=== PATIENT | female | born 1945 | race Hispanic/Latino ===

== ENCOUNTER → 2017-08-27 | Outpatient (CLI) | payer OTHER ==
[~2017-08-27] MED LIST: ASPI-1012 PO; ESCI5TAB10 PO; FOLI1TAB15 PO; HYDR-309 PO; LISI-617 PO; MULTIVITAMIN PO; OMEP40CA37 PO; RANI150T7 PO; [UNRECOGNIZED DRUG - OTHER] PO
== END | disposition home or self-care (01) ==
LOC: RAH 09:54
PROVIDERS: ATTEND Internal Medicine Gastroenterology
DX: K21.9 Gastro-esophageal reflux disease without esophagitis (principal); K44.9 Diaphragmatic hernia without obstruction or gangrene
CPT/HCPCS: 74240

== ENCOUNTER → 2020-03-17 | Outpatient (CLI) | payer OTHER ==
[~2020-03-17] MED LIST changes: -ESCI5TAB10 PO; +ESCI5TAB25 PO; -HYDR-309 PO; +HYDR-4457 PO; +OMEP40CA13 PO; -OMEP40CA37 PO
== END | disposition home or self-care (01) ==
LOC: OIH 13:04
PROVIDERS: ATTEND Internal Medicine
DX: M19.072 Primary osteoarthritis, left ankle and foot (principal); M19.071 Primary osteoarthritis, right ankle and foot; M77.31 Calcaneal spur, right foot; M85.80 Other specified disorders of bone density and structure, unspecified site
CPT/HCPCS: 73630

== ENCOUNTER → 2020-09-03 | Outpatient (CLI) | payer OTHER ==
[~2020-09-03] MED LIST changes: +ESCI5TAB16 PO; -ESCI5TAB25 PO; -LISI-617 PO; +LISI-809 PO; -OMEP40CA13 PO; +OMEP40CA21 PO
== END | disposition home or self-care (01) ==
LOC: SHCH 12:47
PROVIDERS: ATTEND Internal Medicine
DX: I87.2 Venous insufficiency (chronic) (peripheral) (principal); I73.9 Peripheral vascular disease, unspecified
CPT/HCPCS: 93922; 93970

== ENCOUNTER 2021-12-16 09:50 | Emergency (ER) | payer OTHER ==
[~2021-12-16] VITALS: Ht 149.9 cm; Wt 74.8 kg
[~2021-12-16 09:50] MED LIST changes: -LISI-809 PO; +LISI5TAB21 PO
[2021-12-16 10:09] LABS: BASOPHILS % (AUTO) 0.2 % (0.0-5.0); EOSINOPHILS % (AUTO) 8.3 % (0.0-8.0); HEMATOCRIT 30.6 % (36-48); LYMPHOCYTES % (AUTO) 23.4 % (21.0-51.0); MEAN CORPUSCULAR HEMOGLOBIN 26.6 pg (27.0-33.0); MEAN CORPUSCULAR HGB CONC 32.7 g/dL (32.0-36.0); MEAN CORPUSCULAR VOLUME 81.4 fL (79-99); MONOCYTES % (AUTO) 6.7 % (3.0-13.0); PLATELET COUNT (AUTO) 190 K/uL (130-400); RED BLOOD CELL COUNT(AUTO) 3.76 MIL/uL (4.00-5.50); RED CELL DISTRIBUTION WIDTH 17.5 % (11.0-15.5); WHITE BLOOD COUNT (AUTO) 5.6 K/uL (4.8-10.8)
[2021-12-16] MEDS ORDERED: ASPIRIN 325MG TAB PO ONE (10:30)
[2021-12-16 10:34] LABS: ALBUMIN 3.1 g/dL (3.5-5.0); TOTAL PROTEIN, SERUM 6.4 g/dL (6.0-8.3)
[2021-12-16] MEDS ORDERED: FAMO20TA8 PO (13:58)
[2021-12-16] MEDS ORDERED: LIDOCAINE HCL 2% VISCOUS 15 ML UDCUP PO ONE (14:00)
[2021-12-16] MEDS ORDERED: MAG/ALUM/SIMETH 30 ML UDCUP PO ONE (14:00)
[2021-12-16] MEDS ORDERED: DICYCLOMINE HCL 10 MG/5 ML ML PO ONE (14:00)
[2021-12-16 14:33] VITALS: BP 136/58
== END 2021-12-16 14:46 | disposition home or self-care (01) ==
LOC: EDH 09:50
DX: K44.9 Diaphragmatic hernia without obstruction or gangrene (principal); R00.1 Bradycardia, unspecified; R07.89 Other chest pain; E78.00 Pure hypercholesterolemia, unspecified; M19.90 Unspecified osteoarthritis, unspecified site; Z79.82 Long term (current) use of aspirin; Z90.49 Acquired absence of other specified parts of digestive tract
CPT/HCPCS: 36415; 71045; 80053; 82550; 83880; 84484; 85025; 93005

== ENCOUNTER → 2022-03-20 | Outpatient (CLI) | payer OTHER ==
[~2022-03-20] MED LIST changes: +FAMO20TA8 PO
== END | disposition home or self-care (01) ==
LOC: RAH 09:38
PROVIDERS: ATTEND Surgery
DX: K44.9 Diaphragmatic hernia without obstruction or gangrene (principal)
CPT/HCPCS: 74240

== ENCOUNTER → 2022-04-27 | Outpatient (CLI) | payer OTHER ==
[~2022-04-27] MED LIST changes: +LIDOCAINE HCL 1% 20 ML VIAL ONE
== END | disposition home or self-care (01) ==
LOC: RAH 08:34
PROVIDERS: ATTEND Internal Medicine
DX: Z12.31 Encounter for screening mammogram for malignant neoplasm of breast (principal)
CPT/HCPCS: 77067

== ENCOUNTER → 2022-04-28 | Outpatient (CLI) | payer OTHER ==
[~2022-04-28] MED LIST changes: -LIDOCAINE HCL 1% 20 ML VIAL ONE
[2022-04-28 08:33] LABS: INR 0.93 (0.85-1.15); PROTHROMBIN TIME 10.1 SEC (9.6-11.6)
[2022-04-28 08:34] LABS: PARTIAL THROMBOPLASTIN TIME 25.4 SEC (26.3-35.5)
== END | disposition home or self-care (01) ==
LOC: RAH 08:00
PROVIDERS: ATTEND Internal Medicine
DX: E04.2 Nontoxic multinodular goiter (principal); Z79.01 Long term (current) use of anticoagulants
CPT/HCPCS: 10005; 10006; 36415; 76942; 85610; 85730; 88173; 88305

== ENCOUNTER → 2023-05-30 | Outpatient (CLI) | payer OTHER | END | disposition home or self-care (01) | LOC: RAH 11:11 | PROVIDERS: ATTEND Internal Medicine | DX: I65.21 Occlusion and stenosis of right carotid artery (principal); R03.0 Elevated blood-pressure reading, without diagnosis of hypertension; R42 Dizziness and giddiness; R09.89 Other specified symptoms and signs involving the circulatory and respiratory systems | CPT/HCPCS: 93880 ==

== ENCOUNTER → 2023-06-18 | Outpatient (CLI) | payer OTHER | END | disposition home or self-care (01) | LOC: RAH 12:17 | PROVIDERS: ATTEND Internal Medicine | DX: G31.9 Degenerative disease of nervous system, unspecified (principal); R42 Dizziness and giddiness; I65.21 Occlusion and stenosis of right carotid artery; R51.9 Headache, unspecified | CPT/HCPCS: 70450 ==

== ENCOUNTER 2023-08-23 16:57 | Emergency (ER) | payer OTHER ==
[~2023-08-23] VITALS: Ht 154.9 cm; Wt 63.5 kg
[2023-08-23] MEDS: LIDOCAINE HCL 1% 20 ML VIAL INJ SCH (21:30)
[2023-08-23] MEDS: LIDOCAINE HCL 1% 20 ML VIAL ONE (21:34)
[2023-08-23 22:10] VITALS: BP 138/82; PULSE 74; RESP 16; O2SAT 97
== END 2023-08-23 22:14 | disposition home or self-care (01) ==
LOC: EDH 16:57
DX: S00.01XA Abrasion of scalp, initial encounter (principal); E78.00 Pure hypercholesterolemia, unspecified; W01.0XXA Fall on same level from slipping, tripping and stumbling without subsequent striking against object, initial encounter; Y93.89 Activity, other specified; Y92.89 Other specified places as the place of occurrence of the external cause; Y99.8 Other external cause status
CPT/HCPCS: 70450; 70486; 72125

== ENCOUNTER → 2024-01-29 | Outpatient (CLI) | payer OTHER ==
[~2024-01-29] MED LIST changes: +AEC81 PO; +AMLO2.5T4 PO; -ASPI-1012 PO; +ATOR40TA69 PO; +DICL100G60 TP; -ESCI5TAB16 PO; -FOLI1TAB15 PO; -HYDR-4457 PO; +LEVO750T68 PO; -LISI5TAB21 PO; +METR-172 PO; -MULTIVITAMIN PO; -OMEP40CA21 PO; -RANI150T7 PO; +SOLI10TA7 PO; +SUCR1TAB2 PO; -[UNRECOGNIZED DRUG - OTHER] PO
--- NOTE | 2024-01-29 14:22 | HMCIMG ---
US VENOUS DOPPLER BILATERAL REASON: PVD COMPARISON: None Technique: Bilateral venous doppler ultrasound was performed with spectral analysis and color flow imaging technique. FINDINGS: There is a normal appearance of the common femoral, deep femoral, the profunda femoris and popliteal veins. Proximal calf veins appear normal as well. There is normal response to compression and augmentation. There is no evidence of deep venous thrombosis. IMPRESSION: 1. No evidence of deep venous thrombosis in either lower extremity. 2. Fluid visible anterior to the which may be prepatellar bursitis.
--- NOTE | 2024-01-29 14:34 | HMCIMG ---
US ARTERIAL BILAT LOW EXT DUPL REASON: PVD COMPARISON: None TECHNIQUE: Bilateral lower extremity ultrasound Doppler evaluation was performed with spectral analysis and color flow imaging. FINDINGS: Right lower extremity evaluation shows triphasic waveforms common femoral artery through the popliteal artery. There are biphasic waveforms posterior tibial, anterior tibial and dorsalis pedis. Flow velocities appear well preserved. Left leg shows triphasic waveforms common femoral through the proximal popliteal. Distal popliteal is biphasic as are the posterior tibial, anterior tibial and dorsalis pedis arteries. Flow velocities are well preserved throughout. IMPRESSION: 1. No evidence of arterial inflow occlusion in either lower extremity.
== END | disposition home or self-care (01) ==
LOC: RAH 12:58
PROVIDERS: ATTEND Student in an Organized Health Care Education/Training Program
DX: I87.2 Venous insufficiency (chronic) (peripheral) (principal); I73.9 Peripheral vascular disease, unspecified
CPT/HCPCS: 93925; 93970

== ENCOUNTER → 2024-02-18 | Outpatient (CLI) | payer OTHER ==
[2024-02-18 12:17] LABS: ALBUMIN 3.2 g/dL (3.5-5.0); BILIRUBIN,TOTAL 0.3 mg/dL (0.2-1.0); CREATININE 0.9 mg/dL (0.5-1.0); TOTAL PROTEIN, SERUM 6.6 g/dL (6.0-8.3)
== END | disposition home or self-care (01) ==
LOC: LAB 09:57
PROVIDERS: ATTEND Student in an Organized Health Care Education/Training Program
DX: I25.10 Atherosclerotic heart disease of native coronary artery without angina pectoris (principal)
CPT/HCPCS: 36415; 80053

== ENCOUNTER → 2024-02-28 | Outpatient (CLI) | payer OTHER ==
[~2024-02-28] MED LIST changes: +IOHEXOL 350 MG/ML 100ML INFUS..BTL IV ONE
--- NOTE | 2024-02-28 11:28 | HMCIMG ---
CT OF THE CHEST WITH CONTRAST- CT Cardiac Angio co-interpretation This is done as part of the CT cardiac angiogram study. The interpretation of the coronary arteries will be done by pattern cleaner in a separate report. History: over-read Comparison: none CT Dose Index (CTDI): 77.90 mGy Dose Length Product (DLP): 493.40 total mGy PROTOCOL: Examination is done at 2.5 millimeter volumetric acquisition after contrast administration with Isovue 370, 100 cc IV, without complications. Photography is done at 5 millimeter thick intervals for the thorax. The examination begins above the heart and therefore the lung apices are incompletely included. The rest of the left lung is included but the right lung is only included up to its middle third. The periphery of the right lung is not included in the study. FINDINGS: Again, there is diffuse goiter with a severely heterogeneous thyroid, largest part is the left lobe measuring at least 9.3 x 5.3 cm. Again, there is a large hiatal hernia. This has been noted on prior exams. The visualized part of the airway is preserved. The bony and soft tissue structures of the chest wall are unremarkable. The aorta is unremarkable. No mediastinal lymphadenopathy is seen. The lung windows demonstrate no worrisome pulmonary nodules, masses or infiltrates. There is no evidence of pulmonary embolism in the visualized lung segments. The upper abdominal views are unremarkable. Impression: Again, there is diffuse goiter with a severely heterogeneous thyroid, largest part is the left lobe measuring at least 9.3 x 5.3 cm. Again, there is a large hiatal hernia. This has been noted on prior exams. No other significant abnormalities identified.
--- NOTE | 2024-03-05 13:59 | CARDIOLOGY ---
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 A dedicated, limited window, coronary imaging protocol was used, with single breath-hold, retrospective ECG gating, and automated arrhythmia rejection. 100 cc of low osmolar contrast agent: Omnipaque 350 was delivered via a 18-gauge IV catheter in the right antecubital fossa, using a power injector and followed by 60 cc of normal saline bolus as a chaser. Collimated images were reformatted at 0.5 mm intervals, and sent to an offline independent workstation for interpretation, using 3D anatomic reconstructions: Curved multiplanar reconstructions, maximum intensity projections, and multiplanar imaging. No metoprolol was administered prior to scanning due to low baseline heart rate. 0.8 mg SL nitroglycerin was given. CORONARY ARTERY DESCRIPTIONS: The coronary arteries arise in normal position. Left main coronary artery: Normal caliber vessel that bifurcates into the LAD and LCx. No stenosis. Left anterior descending coronary artery: Normal caliber vessel and gives rise to diagonal and septal branches. No stenosis. Left circumflex coronary artery: Normal caliber, dominant and gives rise to two OM branches. No stenosis. Right coronary artery: Small, non-dominant vessel. No stenosis. CAD-RADs: 0, absence of CAD. Thoracic Aorta: Normal diameter. Nela Capellan MD Cardiovascular Disease [facility] NELA CAPELLAN MD Mar 05, 2024 13:59
== END | disposition home or self-care (01) ==
LOC: RAH 10:01
PROVIDERS: ATTEND Student in an Organized Health Care Education/Training Program
DX: I25.10 Atherosclerotic heart disease of native coronary artery without angina pectoris (principal); E04.9 Nontoxic goiter, unspecified; K44.9 Diaphragmatic hernia without obstruction or gangrene
CPT/HCPCS: 75574; Q9967

== ENCOUNTER → 2024-03-28 | Outpatient (CLI) | payer OTHER ==
[~2024-03-28] MED LIST changes: -IOHEXOL 350 MG/ML 100ML INFUS..BTL IV ONE
--- NOTE | 2024-03-28 12:30 | HMCIMG ---
US THYROID/NECK HISTORY: Goiter COMPARISON: 03/30/2022 TECHNIQUE: Thyroid ultrasound study was performed. FINDINGS: Right thyroid lobe measures 5.3 x 1.9 x 2.1 cm. Left thyroid lobe measures 5.5 x 2.2 x 2.4 cm. No discrete thyroid nodule is seen. Right gland is heterogeneous with nodular appearance. Bilateral thyroid nodules are seen with the largest on the right measuring 2.7 x 2.5 cm and on the left measuring 5.5 x 4.8 cm. IMPRESSION: 1. Bilateral thyroid nodules. Follow-up examination is recommended. These were present on previous study. Accurate comparison can't be made.
== END | disposition home or self-care (01) ==
LOC: RAH 11:38
PROVIDERS: ATTEND Internal Medicine
DX: E04.2 Nontoxic multinodular goiter (principal)
CPT/HCPCS: 76536

== ENCOUNTER → 2024-09-16 | Outpatient (CLI) | payer OTHER ==
--- NOTE | 2024-09-17 06:28 | HMCIMG ---
EXAMINATION: ULTRASOUND OF THE THYROID. CLINICAL HISTORY: Non-toxic multi nodular goiter. COMPARISON: Ultrasound of the thyroid dated 03/28/2024. TECHNIQUE: Transverse and longitudinal images were obtained through both lobes and the isthmus of the thyroid. FINDINGS: The thyroid gland is normal in caliber with homogenous tissue echotexture. The right thyroid lobe measures 5.8 x 1.7 x 1.8 cm and the left thyroid lobe measures 5.7 x 1.9 x 2.9 cm in the craniocaudal, AP, and transverse dimensions respectively. The isthmus measures 0.26 cm in AP dimension. Right lobe: There is a hyperechoic solid nodule that measures 1.6 x 0.9 x 1.3 cm at the upper pole (TR3). There is a hyperechoic solid nodule that measures 1.5 x 1.0 x 1.3 cm at the upper pole (TR3). There is a hyperechoic solid nodule that measures 1.8 x 0.7 x 1.4 cm at the medial mid pole (TR3). There is a hyperechoic mixed solid cystic nodule that measures 1.0 x 0.8 x 0.9 cm at the mid pole (TR3). Left lobe: There is a hypoechoic solid nodule that measures 1.6 x 1.0 x 1.6 cm at the mid pole (TR4). There is a hyperechoic mixed solid cystic nodule that measures 1.2 x 0.7 x 1.2 cm at the upper pole (TR3) There is a hyperechoic solid cystic nodule that measures 3.2 x 1.5 x 2.9 cm at the mid pole (TR3). There is an isoechoic solid nodule that measures 3.4 x 2.6 x 2.9 cm at the mid pole (TR3). Isthmus: There is a hyperechoic mixed solid cystic nodule that measures 1.1 x 0.3 x 0.9 cm at the isthmus (TR3). No significantly enlarged lymph nodes. IMPRESSION: Nodules in both lobes of the thyroid. TI-RADS follow up recommendations: TR1: no FNA required TR2: no FNA required TR3: more than or equal to 1.5 cm follow up, more than or equal to 2.5 cm FNA follow up: 1, 3 and 5 years TR4: more than or equal to 1.0 cm follow up, more than or equal to 1.5 cm FNA follow up: 1, 2, 3 and 5 years TR5: more than or equal to 0.5 cm follow up, more than or equal to 1.0 cm FNA annual follow up for up to 5 years /[place]
== END | disposition home or self-care (01) ==
LOC: RAH 10:55
PROVIDERS: ATTEND Internal Medicine Endocrinology, Diabetes & Metabolism
DX: E04.2 Nontoxic multinodular goiter (principal)
CPT/HCPCS: 76536

== ENCOUNTER → 2024-10-21 | Outpatient (CLI) | payer OTHER ==
--- NOTE | 2024-10-21 15:01 | HMCIMG ---
DOUBLE CONTRAST UPPER GI SERIES: Finding: The study was performed using provocative maneuvers After swallowing effervescent crystal and thick barium, there is no definite intrinsic or extrinsic lesion seen in the esophagus. There is moderate sized hiatal hernia. The esophagus is distended and air-filled. There is grade 1 esophageal reflux. The stomach is normal in size, shape, and configuration. The rugal folds appear to be normal. The duodenal bulb, duodenal sweep, and upper jejunum appear to be normal. Fluoroscopy time: 1.4 minutes IMPRESSION: Moderate-sized hiatal hernia Esophagus is distended and air-filled with grade 1 esophageal reflux..
== END | disposition home or self-care (01) ==
LOC: RAH 08:05
PROVIDERS: ATTEND Student in an Organized Health Care Education/Training Program
DX: K21.00 Gastro-esophageal reflux disease with esophagitis, without bleeding (principal); K44.9 Diaphragmatic hernia without obstruction or gangrene; K21.9 Gastro-esophageal reflux disease without esophagitis
CPT/HCPCS: 74240

== ENCOUNTER 2025-02-05 06:58 | Day surgery (SDC) | payer OTHER ==
[2025-02-05] VITALS (10 sets, daily range): BP systolic 95–136; BP diastolic 45–73; PULSE 59–85; RESP 13–17; TEMP 97–97.7
[~2025-02-05] VITALS: Ht 152.4 cm; Wt 58.1 kg
[2025-02-05] MEDS ORDERED: 0.9%NACL 1000ML 1,000 ML IV ONE (07:16)
--- NOTE | 2025-02-05 09:50 | NUR ---
FULL AND COMPLETE DISCHARGE INSTRUCTIONS GIVEN TO PATIENT AND FAMILY BOTH VERBALLY AND IN WRITING. VOICED UNDERSTANDING TO GI PROCEDURE FOLLOW UP EXPECTIONS AND PRECAUTIONS. PATIENT DENIES C/O PAIN OR NEED. PIV REMOVED WITH CATHETER TIP INTACT. W/C TO POV WITH FAMILY TO HOME SCHEDULED.
== END 2025-02-05 09:51 | disposition home or self-care (01) ==
LOC: DAH 06:58 → ENDO 06:58
PROVIDERS: ATTEND Surgery
DX: R13.10 Dysphagia, unspecified (principal); K29.50 Unspecified chronic gastritis without bleeding; K21.00 Gastro-esophageal reflux disease with esophagitis, without bleeding; K44.9 Diaphragmatic hernia without obstruction or gangrene; T18.2XXA Foreign body in stomach, initial encounter; I10 Essential (primary) hypertension; M19.90 Unspecified osteoarthritis, unspecified site; K91.2 Postsurgical malabsorption, not elsewhere classified; R06.02 Shortness of breath; K29.80 Duodenitis without bleeding; Z80.0 Family history of malignant neoplasm of digestive organs; Z90.49 Acquired absence of other specified parts of digestive tract; Z98.51 Tubal ligation status; Z98.890 Other specified postprocedural states; Z79.82 Long term (current) use of aspirin; Z79.899 Other long term (current) drug therapy; W44.F3XA Food entering into or through a natural orifice, initial encounter; Y93.89 Activity, other specified; Y92.89 Other specified places as the place of occurrence of the external cause; Y99.8 Other external cause status
CPT/HCPCS: 43239; J7030 ×2; J2704; A4620; A4215 ×2; A4223; A4657; A7002; A4222; A4221; A4663; A4606; J3490